=== PATIENT | male | born 1990 | race Two or more races ===

== ENCOUNTER 2018-07-08 16:36 | Emergency (ER) | payer SELFPAY ==
--- NOTE | 2018-07-08 18:07 | ER Document Report ---
ED Medical Screen (RME) - General Chief Complaint: Chest Pain Stated Complaint: TINGLING IN HANDS AND FEET Time Seen by Provider: 07/08/18 17:56 Primary Care Provider: LUIZ REIS II, MD [Primary Care Provider] - Follow up as needed Mode of Arrival: Ambulatory Information source: Patient Notes: This is a 27-year-old man who reports a history of borderline diabetes and hypertension urgency room with frequent palpitations over the last month worsening over the last week. Patient denies any significant caffeine intake. Patient denies drugs. TRAVEL OUTSIDE OF THE [place] IN LAST 30 DAYS: No - HPI Onset: Last week Onset/Duration: Gradual Quality of pain: No pain Severity: None Pain Level: Denies Associated Symptoms: denies: Chest pain, Shortness of breath Exacerbated by: Denies Relieved by: Denies Similar symptoms previously: Yes Recently seen / treated by doctor: Yes - Related Data Smoking: Non-smoker Frequency of alcohol use: None Drug Abuse: None Allergies/Adverse Reactions: No Known Allergies Allergy (Verified 08/16/14 22:37) Past Medical History - General Information source: Patient - Social History Cigarette use (# per day): No Chew tobacco use (# tins/day): No Frequency of alcohol use: None Drug Abuse: None Lives with: Spouse/Significant other Family history: None - Past Medical History Cardiac Medical History: Reports: Hx Hypertension Pulmonary Medical History: Reports: None EENT Medical History: Reports: None Neurological Medical History: Reports: None Endocrine Medical History: Reports: Hx Diabetes Mellitus Type 2 Renal/ Medical History: Reports: None. Denies: Hx Peritoneal Dialysis Malignancy Medical History: Reports None GI Medical History: Reports: None Musculoskeltal Medical History: Reports None Skin Medical History: Reports None Psychiatric Medical History: Reports: None Infectious Medical History: Reports: None Past Surgical History: Reports: Hx Orthopedic Surgery - left femur(hardware) - Immunizations Hx Diphtheria, Pertussis, Tetanus Vaccination: Yes Review of Systems - Review of Systems Constitutional: denies: Chills, Fever EENT: No symptoms reported Cardiovascular: Palpitations, Heart racing Respiratory: No symptoms reported Gastrointestinal: No symptoms reported Genitourinary: No symptoms reported Male Genitourinary: No symptoms reported Musculoskeletal: No symptoms reported Skin: No symptoms reported Hematologic/Lymphatic: No symptoms reported Neurological/Psychological: No symptoms reported Physical Exam - Vital signs Vitals: Temp Pulse Resp BP Pulse Ox 97.5 F 88 18 152/89 H 97 07/08/18 16:41 07/08/18 16:41 07/08/18 16:41 07/08/18 16:41 07/08/18 16:41 Notes: Physical exam: GENERAL: Patient is alert and oriented x3, no acute distress HEAD: Atraumatic, normocephalic. EYES: Pupils equal round and reactive to light, extraocular movements intact, sclera anicteric, conjunctiva are normal. ENT: TMs normal, nares patent, oropharynx clear without exudates. Moist mucous membranes. NECK: Normal range of motion, supple without obvious mass or JVD. LUNGS: Breath sounds clear to auscultation bilaterally and equal. No wheezes rales or rhonchi. HEART: Regular rate and rhythm without murmurs, rubs or gallops. ABDOMEN: Soft, normoactive bowel sounds. No tenderness to palpation. No guarding, no rebound. No masses appreciated. EXTREMITIES: Normal range of motion, no pitting or edema. No clubbing or cyanosis. NEUROLOGICAL: Cranial nerves II through XII grossly intact. Normal speech, moving all extremities. PSYCH: Normal mood, normal affect. SKIN: Warm, Dry, normal turgor, no rashes or lesions noted. Course - Vital Signs Vital signs: Temp Pulse Resp BP Pulse Ox 97.5 F 88 18 152/89 H 97 07/08/18 16:41 07/08/18 16:41 07/08/18 16:41 07/08/18 16:41 07/08/18 16:41 - Laboratory Result Diagrams: 07/08/18 18:10 07/08/18 18:10 Laboratory results interpreted by me: 07/08/18 07/08/18 07/08/18 18:10 18:10 18:10 WBC 12.8 H RBC 5.59 H Hgb 18.0 H Hct 52.3 H RDW 14.7 H Plt Count 474 H Absolute Neutrophils 8.8 H Calcium 10.5 H Total Protein 8.8 H Albumin 5.3 H Urine Blood SMALL H - EKG Interpretation by Wa Rate: Normal Rhythm: NSR - EKG shows normal sinus rhythm with a ventricular rate of 79, no acute ST-T wave changes Doctor's Discharge - Discharge Clinical Impression: Hypertension, Palpitations Condition: Stable Disposition: HOME, SELF-CARE Additional Instructions: As we discussed, your kidney function tests, electrolytes, sugar and liver function tests were normal. Your thyroid tests were normal as well. I put a copy of those tests in the discharge summary: Keep them for your record s. I put the number for the free clinic in the chart: Call tomorrow for the next available appointment. It may take a little while to get into that clinic. Bring a copy of today's labs with you when you go. I also put the number of the automatic profile sander operator affiliated with the hospital: He will see anyone and you can call tomorrow and tell the receptionist scheduler that you were seen in the ER and the ER doctor would like you seen by the automatic profile sander operator (Dr. Sam). Take the medicine as prescribed. I printed out a coupon from [employer] so that you can get the medicine at a reduced ochoa. Return to the emergency room for worsening symptoms of palpitations or any concerns or getting worse. Prescriptions: Metoprolol Tartrate [Lopressor 25 mg Tablet] 12.5 mg PO Q12 #60 tab Referrals: [facility] [Provider Group] - Follow up as needed (This is the number the free clinic: Call tomorrow for the next available appointment. It may take a little while to get in.) TYLER SAM MD [ACTIVE STAFF] - Follow up as needed (This is the number the automatic profile sander operator affiliated with this [facility]: He is very nice and will see anyone. Call the office and tell them you are in the emergency room for palpitations and the ER doctor wanted you seen.)
[2018-07-08 18:26] LABS: ABSOLUTE BASOPHILS # (AUTO) 0.1 10^3/uL (0.0-0.2); ABSOLUTE EOSINOPHILS # (AUTO) 0.4 10^3/uL (0.0-0.6); ABSOLUTE LYMPHOCYTES (AUTO) 2.8 10^3/uL (0.5-4.7); ABSOLUTE MONOCYTES (AUTO) 0.7 10^3/uL (0.1-1.4); ABSOLUTE NEUT (AUTO) 8.8 10^3/uL (1.7-8.2); BASOPHILS % (AUTO) 0.7 % (0-2); EOSINOPHILS % (AUTO) 3.5 % (0-6); HEMATOCRIT 52.3 % (37.9-51.0); MEAN CORPUSCULAR HEMOGLOBIN 32.2 pg (27.0-33.4); MEAN CORPUSCULAR HGB CONC 34.4 g/dL (32.0-36.0); MEAN CORPUSCULAR VOLUME 94 fl (80-97); MONOCYTES % (AUTO) 5.1 % (3-13); PLATELET COUNT 474 10^3/uL (150-450); RED BLOOD COUNT 5.59 10^6/uL (4.35-5.55); RED CELL DISTRIBUTION WIDTH 14.7 % (11.5-14.0); SEGMENTED NEUTROPHILS % (AUTO) 68.7 % (42-78); TOTAL CELLS COUNTED % (AUTO) 100 %; WHITE BLOOD COUNT 12.8 10^3/uL (4.0-10.5)
--- NOTE | 2018-07-08 18:31 | EKG REPORT ---
SEVERITY:- OTHERWISE NORMAL ECG - SINUS RHYTHM BORDERLINE RIGHT AXIS DEVIATION : Confirmed by: Nilda Morris MD 08-Jul-2018 18:30:04
[2018-07-08 18:41] LABS: APPEARANCE,URINE CLEAR; BILIRUBIN,URINE NEGATIVE (NEGATIVE); COLOR,URINE YELLOW; GLUCOSE, URINE NEGATIVE (NEGATIVE); KETONES,URINE NEGATIVE (NEGATIVE); LEUKOCYTE ESTERASE,URINE NEGATIVE (NEGATIVE); NITRITE,URINE NEGATIVE (NEGATIVE); PROTEIN,URINE NEGATIVE (NEGATIVE); URINE SPECIFIC GRAVITY 1.012; UROBILINOGEN,URINE NEGATIVE mg/dL (<2.0)
[2018-07-08 18:46] LABS: ALANINE AMINOTRANSFERASE 52 U/L (21-72); ALBUMIN 5.3 g/dL (3.5-5.0); ALKALINE PHOSPHATASE 93 U/L (38-126); ANION GAP 12 (5-19); ASPARTATE AMINO TRANSFERASE 36 U/L (17-59); BILIRUBIN,DIRECT 0.3 mg/dL (0.0-0.4); BILIRUBIN,TOTAL 0.7 mg/dL (0.2-1.3); BLOOD UREA NITROGEN 10 mg/dL (7-20); CALCIUM 10.5 mg/dL (8.4-10.2); CARBON DIOXIDE 26 mmol/L (22-30); CHLORIDE 103 mmol/L (98-107); GLUCOSE 85 mg/dL (75-110); POTASSIUM 4.9 mmol/L (3.6-5.0); SODIUM 140.5 mmol/L (137-145); TOTAL PROTEIN 8.8 g/dL (6.3-8.2)
[2018-07-08 18:57] LABS: URINE AMPHETAMINES SCREEN NEGATIVE; URINE BARBITURATES SCREEN NEGATIVE; URINE BENZODIAZEPINES SCREEN NEGATIVE; URINE COCAINE SCREEN NEGATIVE; URINE MARIJUANA (THC) SCREEN NEGATIVE; URINE METHADONE SCREEN NEGATIVE; URINE PHENCYCLIDINE SCREEN NEGATIVE
[2018-07-08 19:16] LABS: FREE T4 (FREE THYROXINE) 1.26 ng/dL (0.78-2.19)
[2018-07-08 19:17] LABS: FREE T3 4.24 pg/mL (2.77-5.27)
[2018-07-08 19:30] LABS: THYROID STIMULATING HORMONE 1.4 uIU/mL (0.47-4.68)
[2018-07-08 20:27] VITALS: BP 139/88
== END 2018-07-08 20:36 | disposition home or self-care (01) ==
LOC: ER 16:36
DX: R07.9 Chest pain, unspecified (principal); R20.2 Paresthesia of skin; I10 Essential (primary) hypertension; E11.9 Type 2 diabetes mellitus without complications; R00.2 Palpitations
CPT/HCPCS: 36415; 80053; 80307; 81001; 84439; 84443; 84481; 85025; 93005; 93010; 99285

== ENCOUNTER 2018-12-07 03:47 | Emergency (ER) | payer SELFPAY ==
[2018-12-07 03:54] VITALS: BP 156/92
[2018-12-07] MEDS ORDERED: ACETAMINOPHEN 325 MG TABLET PO ONE (04:03)
--- NOTE | 2018-12-07 04:37 | ER Document Report ---
HPI - HPI Time Seen by Provider: 12/07/18 04:03 Context: Patient is a 28-year-old male who presents to the emergency department with a chief complaint of right hand pain. He was hitting a punching bag machine and he states his hand hurts. This happened at midnight 30 this evening. He has ab rasions noted to his right knuckles. He is up-to-date on his tetanus vaccine. - ROS Notes: REVIEW OF SYSTEMS: CONSTITUTIONAL : Denies recent illness. Denies recent unintentional weight loss. Denies fever, chills, or sweats. EENT: Denies eye, ear, throat, or mouth pain, discharge, or symptoms. Denies nasal or sinus congestion. CARDIOVASCULAR: Denies chest pain. RESPIRATORY: Denies shortness of breath, cough, congestion, difficulty breathing, or wheezing. GASTROINTESTINAL: Denies nausea, vomiting, and diarrhea. Denies abdominal pain. Denies constipation. GENITOURINARY: Denies difficulty urinating, burning, blood in urine, urgency or frequency. MUSCULOSKELETAL: See HPI SKIN: Denies rash, itchiness, or lesions HEMATOLOGIC : Denies easy bruising or bleeding. LYMPHATIC: Denies swollen, painful, enlarged glands. NEUROLOGICAL: Denies no numbness or tingling denies weakness. Denies headache. Denies altered mental status. Denies alteration in speech. PSYCHIATRIC: Denies stress, anxiety, alteration in sleep patterns, or depression. All other systems reviewed and negative. Past Medical History - General Information source: Patient - Social History Smoking Status: Unknown if Ever Smoked Family History: Reviewed & Not Pertinent - Past Medical History Cardiac Medical History: Reports: Hx Hypertension Endocrine Medical History: Reports: Hx Diabetes Mellitus Type 2 Renal/ Medical History: Denies: Hx Peritoneal Dialysis Past Surgical History: Reports: Hx Orthopedic Surgery - left femur(hardware) - Immunizations Hx Diphtheria, Pertussis, Tetanus Vaccination: Yes Vertical Provider Document - CONSTITUTIONAL Notes: PHYSICAL EXAMINATION: GENERAL: Appears well, healthy, well-nourished, no acute distress. HEAD: Normocephalic, atraumatic. EYES: PERRL, conjunctiva normal, all extraocular movements intact, sclera nonicteric ENT: Moist mucous membranes. NECK: Supple, no noticeable swelling, redness, rash. Normal range of motion. LUNGS: Equal breath sounds bilaterally and clear to auscultation. No wheezes rales or rhonchi. CARDIOVASCULAR: S1-S2, regular rate, regular rhythm. Radial pulses 2+, normal. ABDOMEN: Normoactive bowel sounds. Soft, nontender, no guarding, no rebound tenderness, and no masses palpated. EXTREMITIES: Decreased range of motion to right hand. Able to flex and extend all digits. NEUROLOGICAL: Moves all extremities upon command. PSYCH: Normal mood, normal affect. SKIN: Warm, dry. No rash, lesions, ulcerations noted. Normal skin turgor. - INFECTION CONTROL TRAVEL OUTSIDE OF THE [place] IN LAST 30 DAYS: No Course - Re-evaluation Re-evalutation: The patient is able to move all digits with no difficulty. No vascular compromise noted. I do not suspect a tendon injury, as he is able to flex and extend his digits with no difficulty. An x-ray will be ordered. He will receive a dose of ibuprofen and Tylenol for pain relief. 12/07/18 04:37 Unfortunately, the patient has decided to leave. He did not went to have his x- rays done. He stated that he could not stay. - Vital Signs Vital signs: Temp Pulse Resp BP Pulse Ox 98.6 F 90 18 156/92 H 95 12/07/18 03:53 12/07/18 03:53 12/07/18 03:53 12/07/18 03:53 12/07/18 03:53 Discharge - Discharge Clinical Impression: Right hand pain Condition: Stable Disposition: ELOPED
== END 2018-12-07 04:05 | disposition left against medical advice (07) ==
LOC: ER 03:47
DX: M79.641 Pain in right hand (principal); I10 Essential (primary) hypertension; E11.9 Type 2 diabetes mellitus without complications
CPT/HCPCS: 99283